=== PATIENT | male | born 1985 | race Caucasian/White ===

== ENCOUNTER 2017-02-11 13:59 | Day surgery (SDC) | payer BC, OTHER ==
[~2017-02-11 13:59] MED LIST: GLYCOPYRROLATE 1 MG/5 ML SYRINGE IV PUSH ONE; LACTATED RINGER'S 1000 ML INJ 1,000 ML IV ONE; LIDOCAINE HCL 1% PF 5 ML AMPULE OTHER ONE; NEOMYCIN/POLYMYXIN 1 ML G.U. IRRIGANT IRRIGATION ONE; NEOSTIGMINE 3 MG/3 ML SYR IV ONE; ONDANSETRON HCL 4 MG/2 ML VIAL IV PUSH ONE; PROPOFOL 200 MG/20 ML AMP IV ONE; ROCURONIUM INJ 50 MG/5 ML SYRINGE IV PUSH ONE; SUCCINYLCHOLINE CHLORIDE 100 MG/5 ML SYRINGE IV PUSH ONE
[2017-02-11 14:02] VITALS: BP 139/77; PULSE 87; RESP 16; TEMP 98.3; O2SAT 97
[2017-02-11] MEDS ORDERED: TETANUS/DIPHTHERIA TOXOID ADULT 0.5 ML VIAL IM ONE (14:15)
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
[2017-02-11 14:22] LABS: AUTOMATED NEUTROPHIL # 3.2 TH/MM3 (1.8-7.7); BASOPHIL % 0.5 % (0.0-2.0); EOSINOPHIL # 0.1 TH/MM3 (0-0.4); EOSINOPHIL % 1.9 % (0.0-4.0); HEMATOCRIT 40.1 % (39.0-51.0); HEMO FLAGS DIFF FINAL; LYMPH % 33.7 % (9.0-44.0); MEAN CELL VOLUME 90.9 FL (80.0-100.0); MEAN CORPUSCULAR HEMOGLOBIN 31.4 PG (27.0-34.0); MEAN CORPUSCULAR HGB CONC 34.6 % (32.0-36.0); MONO % 8.2 % (0.0-8.0); NEUT % 55.7 % (16.0-70.0); PLATELET COUNT 299 TH/MM3 (150-450); RED BLOOD COUNT 4.41 MIL/MM3 (4.50-5.90); RED CELL DISTRIBUTION WIDTH 12.5 % (11.6-17.2); WHITE BLOOD COUNT 5.8 TH/MM3 (4.0-11.0)
[2017-02-11 14:29] LABS: APTT (PATIENT) 22.5 SEC (24.3-30.1); INTERNATIONAL NORMALIZED RATIO 1.1 RATIO; PROTHROMBIN TIME - PATIENT 11.9 SEC (9.8-11.6)
[2017-02-11 14:34] LABS: BICARBONATE 22.7 MEQ/L (21.0-32.0); POTASSIUM 3.7 MEQ/L (3.5-5.1)
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
[2017-02-11] MEDS ORDERED: BUPIVACAINE HCL PF 0.5% 30 ML VIAL ONE (15:20)
[2017-02-11] MEDS ORDERED: VANCOMYCIN HCL 1000 MG VIAL ONE (15:20)
[2017-02-11] MEDS ORDERED: ceFAZolin INJ 1,000 MG VIAL ONE (15:21)
[2017-02-11] MEDS ORDERED: LIDOCAINE HCL 1% 50 ML VIAL ONE (15:21)
[2017-02-11] MEDS ORDERED: LIDOCAINE HCL 2% 50 ML VIAL ONE (15:57)
[2017-02-11] MEDS ORDERED: *ONDANSETRON 4 MG VIAL PERIprocedural Use ONLY ONE (18:48)
[2017-02-11] MEDS ORDERED: *PROMETHAZINE 25 MG/ML VIAL PERIprocedural use ONLY ONE (18:52)
[2017-02-11] MEDS ORDERED: DO NOT ADM ANY ANTICOAGULANT DRUGS PRN (19:00)
[2017-02-11] MEDS ORDERED: HYDROmorphone HCL PF 1 MG/ML VIAL IV PRN (19:00)
[2017-02-11] MEDS ORDERED: ONDANSETRON HCL 4 MG/2 ML VIAL IV PUSH PRN (19:15)
[2017-02-11] MEDS ORDERED: CEPH-460 PO (19:26)
[2017-02-11 20:00] VITALS: BP 117/67; PULSE 66; RESP 17; TEMP 98.2; O2SAT 98
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
== END 2017-02-11 20:10 | disposition home or self-care (01) ==
LOC: NEPE 13:59 → HSDC 14:54
PROVIDERS: ATTEND Orthopaedic Surgery
DX: S63.282A Dislocation of proximal interphalangeal joint of right middle finger, initial encounter (principal); S62.624B Displaced fracture of middle phalanx of right ring finger, initial encounter for open fracture; S62.620B Displaced fracture of middle phalanx of right index finger, initial encounter for open fracture; Y93.55 Activity, bike riding
CPT/HCPCS: 01810; 26548; 26746; 73130; 73200; 76000; 80048; 85025; 85610; 85730; 99285; C1713; J0330; J0690; J2405; J2550; J2710; J3010; J7120; J3370